=== PATIENT | female | born 1975 | race Caucasian/White ===

== ENCOUNTER → 2016-12-16 | Outpatient (CLI) | payer OTHER | LOC: FIMAGING 10:14 | PROVIDERS: ATTEND Obstetrics & Gynecology | DX: Z12.31 Encounter for screening mammogram for malignant neoplasm of breast (principal) | CPT/HCPCS: G0202 ==

== ENCOUNTER → 2017-12-09 | Outpatient (CLI) | payer OTHER | LOC: FIMAGING 15:48 | PROVIDERS: ATTEND Obstetrics & Gynecology | DX: D25.9 Leiomyoma of uterus, unspecified (principal) ==

== ENCOUNTER 2018-01-30 11:14 | Emergency (ER) | payer OTHER ==
--- NOTE | 2018-01-30 11:33 | EDPHY ---
H & P Smoking Status: Never smoked Time Seen by Provider: 01/30/18 11:28 HPI/ROS: CHIEF COMPLAINT: Left calf pain x3 days HISTORY OF PRESENT ILLNESS: 42-year-old otherwise healthy female complaining of atraumatic left calf pain. Spoke with her OBGYN who recommend he go to the ER for evaluation possible DVT as she recently initiated oral contraceptives. Nonsmoker. No history of vasculopathy or coagulopathic disorder. No family history of similar. No trauma. She notes no discoloration. Reproducible pain with palpation of the distal left calf. No chest pain. No dyspnea. She walk 3 miles with no complaints of chest pain or dyspnea out of proportion to activity. REVIEW OF SYSTEMS: A ten point review of systems was performed and is negative with the exception of the items mentioned in the HPI PAST MEDICAL & SURGICAL HISTORY: No coagulopathic disorder SOCIAL HISTORY:Nonsmoker PHYSICAL EXAM (Prior to examination, patient consented to physical exam, hands were washed and my usual and customary physical exam procedures followed) 1) GENERAL: Well-developed, well-nourished, alert and oriented. Appears to be in no acute distress. 2) HEAD: Normocephalic, atraumatic 3) HEENT: Pupils equal, round, reactive to light bilaterally. Sclera anicteric. 4) NECK: Full range of motion, no meningeal signs. 5) LUNGS: Clear auscultation bilaterally, no wheezes, no rhonchi, no retractions. 6) HEART: Regular rate and rhythm, no murmur, no heave, no gallop. 7) ABDOMEN: [No guarding, no rebound, no focal tenderness, 8) MUSCULOSKELETAL: Left lower extremity: Tender to palpation left distal calf. Negative Homans no palpable cord. Soft compartments. No visible asymmetry, no edema. DP PT pulses present and brisk. Capillary refill is less than 2 sec. 9) BACK: No CVA tenderness 10) SKIN: No rash, no petechiae. 11) Psychiatric: Patient is oriented X 3, there is no agitation. DIFFERENTIAL DIAGNOSIS: In no particular order including but not limited to muscle strain, compartment syndrome, DVT (Mando,Herberth Doreen) Constitutional: Initial Vital Signs Temperature (C) 36.7 C 01/30/18 11:16 Heart Rate 97 01/30/18 11:16 Respiratory Rate 20 01/30/18 11:16 Blood Pressure 161/108 H 01/30/18 11:16 O2 Sat (%) 100 01/30/18 11:16 O2 Delivery Mode Room Air Allergies/Adverse Reactions: cefuroxime axetil [From Ceftin] Allergy (Verified 01/30/18 11:16) meperidine HCl [From Demerol] Allergy (Verified 01/30/18 11:16) Penicillins Allergy (Verified 01/30/18 11:16) Home Medications: Medication Instructions Recorded Cholecalciferol (Vitamin D3) 2,000 unit PO DAILY 12/05/13 [Vitamin D-3] Herbals/Supplements -Info Only 1 each PO AD 12/05/13 Levothyroxine [Synthroid 25 mcg 25 mcg PO DAILY06 12/05/13 (RX)] Vit27&Calcium/Iron/FA 1 each PO DAILY 12/05/13 [ Rx 1 Tablet (RX)] Microgestin Fe 1-20 Tablet 01/30/18 MDM/Departure - MDM Imaging Results: Images reviewed by myself (Herberth Gilmore) ED Course/Re-evaluation: 1145 a.m. Care of patient under supervision of secondary supervising physician Dr Giang. Will obtain ultrasonographic imaging 12:14 p.m..: Ultrasound of the lower extremities negative for DVT. 12:16 p.m.: Re-evaluation. Discussed the imaging results. Re-examined the patient. She remains neurovascularly intact. No evidence of compartment syndrome. Plan will be discharge. Recommend elevation, cold packs. Usual and customary discharge precautions instructions provided. (Herberth Gilmore) I did not see this patient while she was in the emergency department. However her care was discussed with the PA while the patient was in the department. I agree with treatment plan and management (Lucas Giang) - Depart Disposition: Home, Routine, Self-Care Clinical Impression: Pain of left calf Condition: Good Instructions: Leg Cramps (ED) Additional Instructions: Return to the ER immediately if you experience discoloration, have worsening pain, numbness, tingling, or any other symptoms that concern you. If you received x-rays in the emergency department today, be advised, that ligamentous , tendon, muscular, and other non-bony injury cannot be fully ruled out. Try to keep your affected extremity elevated above the level of your chest, and keep cold packs on the affected area, for the next 48 hours. Referrals: Sofy Pretty MD [Primary Care Provider] - 2-3 days, call for appt.
[2018-01-30 12:23] VITALS: BP 115/58
== END 2018-01-30 12:21 | disposition home or self-care (01) ==
DX: M79.605 Pain in left leg (principal)

== ENCOUNTER → 2018-03-01 | Outpatient (CLI) | payer OTHER | LOC: FIMAGING 13:14 | PROVIDERS: ATTEND Obstetrics & Gynecology | DX: Z12.31 Encounter for screening mammogram for malignant neoplasm of breast (principal) ==

== ENCOUNTER 2018-04-07 23:31 | Emergency (ER) | payer OTHER ==
[2018-04-07] MEDS ORDERED: NS 1,000 ML IV ONE ×2 (23:35→23:51)
--- NOTE | 2018-04-07 23:39 | EDPHY ---
H & P Time Seen by Provider: 04/07/18 23:36 HPI/ROS: HPI CHIEF COMPLAINT: Difficulty bowel movement, hard stool, lightheadedness, syncope, anxiety, numbness and tingling, abdominal cramping HISTORY OF PRESENT ILLNESS: Patient is a 42-year-old female she has a history of thyroid disease, additionally hypertension, and takes control, she presents emergency room by ambulance after she states she had a syncopal episode while straining with a hard bowel movement. Patient states that she dinner tonight had some abdominal discomfort. This is around 7 o'clock at night. Around 10 o'clock she tried to go to sleep had some lower abdominal cramping and decided to use the bathroom. She was straining really hard to have a bowel movement she states her stool was exceedingly hard. She had to strain very hard. She states she was able to strain and get a bowel movement out. However she became very lightheaded. And then had a syncopal episode. When EMS arrived she was hyperventilating complaining of numbness and tingling in her hands. He reports he is breathing over 30 times a minute and her end- tidal CO2 was at 18. She now arrives to the emergency room stating that the only thing that bothers her now is a headache. She denies chest pain or shortness of breath. Denies abdominal pain focal numbness or tingling or focal weakness. Past Medical History: Thyroid disease, hypertension, takes control, history of anxiety Past Surgical History: Denies recent surgery Social History: Denies daily use of tobacco or drugs. Did have 2 margaritas tonight. Family History: Noncontributory ROS REVIEW OF SYSTEMS: A comprehensive 10 point review of systems is otherwise negative aside from elements mentioned in the history of present illness. Exam Constitutional nontoxic appearing, triage nursing summary reviewed, vital signs reviewed, awake/alert. Vital signs stable triage. Eyes normal conjunctivae and sclera, EOMI, PERRLA. HENT normal inspection, atraumatic, moist mucus membranes, no epistaxis, neck supple/ no meningismus, no raccoon eyes. Respiratory clear to auscultation bilaterally, normal breath sounds, no respiratory distress, no wheezing. Cardiovascular rate normal, regular rhythm, no murmur, no edema, distal pulses normal. Gastrointestinal soft, non-tender, no rebound, no guarding, normal bowel sounds, no distension, no pulsatile mass. Genitourinary no CVA tenderness. Musculoskeletal no midline vertebral tenderness, full range of motion, no calf swelling, no tenderness of extremities, no meningismus, good pulses, neurovascularly intact. Skin pink, warm, & dry, no rash, skin atraumatic. Neurologic awake, alert and oriented x 3, AAOx3, moves all 4 extremities equally, motor intact, sensory intact, CN II-XII intact, normal cerebellar, normal vision, normal speech. Psychiatric normal mood/affect. Heme/Lymph/Immune no lymphadenopathy. Differential diagnosis includes but is not limited to: Micturition syncope, vaso vagal syncope, orthostatic syncope ACS, atypical chest pain, pneumothorax, pneumonia, pulmonary embolism, aortic dissection, congestive heart failure, tumor, musculoskeletal pain, esophageal pain, GERD, peptic ulcer disease, pancreatitis, abdominal pain differential Medical Decision Making: Plan for this patient IV establishment IV fluid bolus 1 L normal saline, EKG, troponin, D-dimer given control and syncope, abdominal blood work, urinalysis and re-evaluate. Re-evaluation: EKG interpretation by me on record in [employer] system. Impression time of EKG 2346, sinus tach 101 subtle T-wave abnormality lead 3 and AVF. Additionally V3 V4 V5. Otherwise no ST elevation no ST depression. ED x-ray chest one view negative for acute cardiopulmonary disease. EKG interpretation by me on record in [employer] system. Impression time of EKG 2:31 a.m. This is a repeat EKG this is sinus rhythm rate of 89 T-wave inversion noted V3. There is T-wave flattening V2 and lead 3 but otherwise no acute ischemia change. No ST elevation or ST depression. No significant signs of cardiac arrhythmia. 0303: Patient re-evaluated this time she is resting comfortably. She is requesting discharge from the emergency room. She denies any chest pain or shortness of breath. Her vital signs have been stable here. She has had 2- troponins. Initial EKG showed nonspecific T-wave abnormalities. Rather diffuse leads. Her repeat EKG shows T-wave inversion V1 flattening V2 and T- wave inversion V3. But no other acute ischemic change. She has not had any chest pain she has had 2 troponins. Given her history and review of systems and clinical exam and symptoms consistent with marry duration syncope and now feeling much better after IV fluids I feel that it is reasonable to be discharged home. I do not think this was a cardiac event. I have discussed return precautions with her she understands return emergency room she develops chest pain shortness of breath syncope, fever, vomiting or any further symptoms or not feeling well. She understands. Should follow up with primary care doctor as well. Source: Patient, EMS - Medical/Surgical History Hx Asthma: No Hx Chronic Respiratory Disease: No Hx Diabetes: No Hx Cardiac Disease: No Hx Renal Disease: No Hx Cirrhosis: No Hx Alcoholism: No Hx HIV/AIDS: No Hx Splenectomy or Spleen Trauma: No Other PMH: Migraines, depression, L kidney abnormality,. Ganglion cyst removed , csec, ectopic, kamini - Social History Smoking Status: Never smoked Constitutional: Initial Vital Signs Heart Rate 106 H 04/07/18 23:32 Respiratory Rate 16 04/07/18 23:32 Blood Pressure 130/109 H 04/07/18 23:32 O2 Sat (%) 97 04/07/18 23:32 O2 Delivery Mode Room Air Allergies/Adverse Reactions: cefuroxime axetil [From Ceftin] Allergy (Verified 04/07/18 23:45) meperidine HCl [From Demerol] Allergy (Verified 04/07/18 23:45) Penicillins Allergy (Verified 04/07/18 23:45) Home Medications: Medication Instructions Recorded Cholecalciferol (Vitamin D3) 2,000 unit PO DAILY 12/05/13 [Vitamin D-3] Herbals/Supplements -Info Only 1 each PO AD 12/05/13 Levothyroxine [Synthroid 25 mcg 25 mcg PO DAILY06 12/05/13 (RX)] Vit27&Calcium/Iron/FA 1 each PO DAILY 12/05/13 [ Rx 1 Tablet (RX)] Microgestin Fe 1-20 Tablet 01/30/18 Triamterene-Hctz 37.5-25 mg Tb 04/07/18 Medical Decision Making - Diagnostics Imaging Results: Imaging Impressions Chest X-Ray 04/07/18 23:35 Impression: Negative portable chest. - Data Points Laboratory Results: Laboratory Results 04/07/18 23:20 04/08/18 04/08/18 04/07/18 02:29 00:30 23:42 WBC RBC Hgb Hct MCV MCH MCHC RDW Plt Count MPV Neut % (Auto) Lymph % (Auto) [place] % (Auto) Eos % (Auto) Baso % (Auto) Nucleat RBC Rel Count Absolute Neuts (auto) Absolute Lymphs (auto) Absolute Monos (auto) Absolute Eos (auto) Absolute Basos (auto) Absolute Nucleated RBC Immature Gran % Immature Gran # PT INR APTT D-Dimer VBG Lactic Acid 2.1 mmol/L mmol/L (0.7-2.1) Magnesium Total Bilirubin Conjugated Bilirubin Unconjugated Bilirubin AST ALT Alkaline Phosphatase POC Troponin I 0.00 ng/mL ng/mL (0.00-0.08) NT-Pro-B Natriuret Pep Total Protein Albumin Lipase Beta HCG, Qual Urine Color YELLOW Urine Appearance CLEAR Urine pH 7.0 (5.0-7.5) Ur Specific [place] 1.017 (1.002-1.030) Urine Protein NEGATIVE (NEGATIVE) Urine Ketones 2+ H (NEGATIVE) Urine Blood NEGATIVE (NEGATIVE) Urine Nitrate NEGATIVE (NEGATIVE) Urine Bilirubin NEGATIVE (NEGATIVE) Urine Urobilinogen NEGATIVE EU EU (0.2-1.0) Ur Leukocyte Esterase NEGATIVE (NEGATIVE) Urine Glucose NEGATIVE (NEGATIVE) 04/07/18 04/07/18 04/07/18 23:40 23:20 23:20 WBC RBC Hgb Hct MCV MCH MCHC RDW Plt Count MPV Neut % (Auto) Lymph % (Auto) [place] % (Auto) Eos % (Auto) Baso % (Auto) Nucleat RBC Rel Count Absolute Neuts (auto) Absolute Lymphs (auto) Absolute Monos (auto) Absolute Eos (auto) Absolute Basos (auto) Absolute Nucleated RBC Immature Gran % Immature Gran # PT INR APTT D-Dimer VBG Lactic Acid Magnesium 2.0 mg/dL mg/dL (1.6-2.3) Total Bilirubin 0.4 mg/dL mg/dL (0.1-1.4) Conjugated Bilirubin 0.2 mg/dL mg/dL (0.0-0.5) Unconjugated Bilirubin 0.2 mg/dL mg/dL (0.0-1.1) AST 25 IU/L IU/L (14-46) ALT 26 IU/L IU/L (9-52) Alkaline Phosphatase 45 IU/L IU/L (38-126) POC Troponin I 0.00 ng/mL ng/mL (0.00-0.08) NT-Pro-B Natriuret Pep 23 pg/mL pg/mL (0-125) Total Protein 7.5 g/dL g/dL (6.3-8.2) Albumin 4.6 g/dL g/dL (3.5-5.0) Lipase 55 IU/L IU/L (23-300) Beta HCG, Qual NEGATIVE Urine Color Urine Appearance Urine pH Ur Specific [place] Urine Protein Urine Ketones Urine Blood Urine Nitrate Urine Bilirubin Urine Urobilinogen Ur Leukocyte Esterase Urine Glucose 04/07/18 04/07/18 23:20 23:20 WBC 9.84 10^3/uL H 10^3/uL (3.80-9.50) RBC 4.63 10^6/uL 10^6/uL (4.18-5.33) Hgb 15.9 g/dL g/dL (12.6-16.3) Hct 43.1 % % (38.0-47.0) MCV 93.1 fL fL (81.5-99.8) MCH 34.3 pg H pg (27.9-34.1) MCHC 36.9 g/dL H g/dL (32.4-36.7) RDW 12.5 % % (11.5-15.2) Plt Count 292 10^3/uL 10^3/uL (150-400) MPV 10.9 fL fL (8.7-11.7) Neut % (Auto) 41.4 % % (39.3-74.2) Lymph % (Auto) 47.6 % H % (15.0-45.0) [place] % (Auto) 8.5 % % (4.5-13.0) Eos % (Auto) 1.5 % % (0.6-7.6) Baso % (Auto) 0.8 % % (0.3-1.7) Nucleat RBC Rel Count 0.0 % % (0.0-0.2) Absolute Neuts (auto) 4.07 10^3/uL 10^3/uL (1.70-6.50) Absolute Lymphs (auto) 4.68 10^3/uL H 10^3/uL (1.00-3.00) Absolute Monos (auto) 0.84 10^3/uL H 10^3/uL (0.30-0.80) Absolute Eos (auto) 0.15 10^3/uL 10^3/uL (0.03-0.40) Absolute Basos (auto) 0.08 10^3/uL 10^3/uL (0.02-0.10) Absolute Nucleated RBC 0.00 10^3/uL 10^3/uL (0-0.01) Immature Gran % 0.2 % % (0.0-1.1) Immature Gran # 0.02 10^3/uL 10^3/uL (0.00-0.10) PT 11.5 SEC L SEC (12.0-15.0) INR 0.82 L (0.83-1.16) APTT 21.8 SEC L SEC (23.0-38.0) D-Dimer < 0.27 ug/mLFEU ug/mLFEU (0.00-0.50) VBG Lactic Acid Magnesium Total Bilirubin Conjugated Bilirubin Unconjugated Bilirubin AST ALT Alkaline Phosphatase POC Troponin I NT-Pro-B Natriuret Pep Total Protein Albumin Lipase Beta HCG, Qual Urine Color Urine Appearance Urine pH Ur Specific [place] Urine Protein Urine Ketones Urine Blood Urine Nitrate Urine Bilirubin Urine Urobilinogen Ur Leukocyte Esterase Urine Glucose Medications Given: Discontinued Medications Sodium Chloride (Ns) 1,000 mls @ 0 mls/hr IV EDNOW ONE; Wide Open PRN Reason: Protocol Stop: 04/07/18 23:36 Last Admin: 04/07/18 23:44 Dose: 1,000 mls Sodium Chloride (Ns) 1,000 mls @ 0 mls/hr IV ONCE ONE PRN Reason: Wide Open Stop: 04/07/18 23:52 Last Admin: 04/08/18 00:30 Dose: 1,000 mls Point of Care Test Results: Chemistry 04/08/18 04/07/18 02:29 23:40 POC Troponin I 0.00 ng/mL ng/mL 0.00 ng/mL ng/mL (0.00-0.08) (0.00-0.08) Departure - Departure Disposition: Home, Routine, Self-Care Clinical Impression: Micturition syncope Condition: Good Instructions: Syncope (ED) Additional Instructions: 1. Return emergency room if you have worsening symptoms. This includes chest pain, passing out. 2. Stay well-hydrated over the weekend drink lots of fluids. Referrals: Patient,NotPresent [Unknown] - As per Instructions
[2018-04-07 23:45] LABS: PLATELET COUNT 292 10^3/uL (150-400)
--- NOTE | 2018-04-07 23:48 | CPEKG ---
Heart Rate: 101 RR Interval: 594 P-R Interval: 126 QRSD Interval: 98 QT Interval: 328 QTC Interval: 426 P [place]: 78 QRS [place]: 84 T Wave [place]: -50 EKG Severity - BORDERLINE ECG - EKG Impression: SINUS TACHYCARDIA EKG Impression: BORDERLINE T ABNORMALITIES, DIFFUSE LEADS Electronically Signed By: Rohan Akers 08-Apr-2018 06:49:45
[2018-04-07 23:53] LABS: INR 0.82 (0.83-1.16); PROTIME(PATIENT) 11.5 SEC (12.0-15.0)
--- NOTE | 2018-04-08 02:33 | CPEKG ---
Heart Rate: 89 RR Interval: 674 P-R Interval: 148 QRSD Interval: 88 QT Interval: 356 QTC Interval: 434 P [place]: 62 QRS [place]: 75 T Wave [place]: 31 EKG Severity - BORDERLINE ECG - EKG Impression: SINUS RHYTHM EKG Impression: BORDERLINE T ABNORMALITIES, ANTERIOR LEADS Electronically Signed By: Rohan Akers 08-Apr-2018 06:49:45
[2018-04-08 03:23] VITALS: BP 118/74
== END 2018-04-08 03:23 | disposition home or self-care (01) ==
LOC: EDUNIT#
DX: R55 Syncope and collapse (principal); E86.9 Volume depletion, unspecified; I10 Essential (primary) hypertension
CPT/HCPCS: 84484-PO